=== PATIENT | female | born 1955 | race Two or more races ===

== ENCOUNTER 2022-11-30 17:03 | Emergency (ER) | payer BC ==
[~2022-11-30] VITALS: Ht 160 cm; Wt 53.1 kg
[2022-11-30] MEDS ORDERED: LIDOCAINE 2% 20 ML MDV ONE (17:42)
[2022-11-30] MEDS ORDERED: LIDOCAINE 1%-EPI 1:100,000 20 ML VIAL ONE (17:46)
[2022-11-30] MEDS ORDERED: LIDOCAINE 1%-EPI 1:100,000 20 ML VIAL TP ONE (18:00)
[2022-11-30 18:23] VITALS: BP 132/90; TEMP 98.1; O2SAT 97
[2022-11-30] MEDS ORDERED: KETOROLAC TROMETHAMINE INJ 60 MG/2 ML VIAL IM ONE (18:30)
[2022-11-30] MEDS ORDERED: HYDROCODONE/APAP 5/325MG TABLET PO ONE (18:30)
== END 2022-11-30 18:24 | disposition home or self-care (01) ==
LOC: ER 17:16
DX: S01.112A Laceration without foreign body of left eyelid and periocular area, initial encounter (principal); E03.9 Hypothyroidism, unspecified; W22.8XXA Striking against or struck by other objects, initial encounter; Y93.89 Activity, other specified; Y92.89 Other specified places as the place of occurrence of the external cause; Y99.8 Other external cause status
CPT/HCPCS: 99282; 12001; J3490 ×2